=== PATIENT | female | born 1985 | race Two or more races ===

== ENCOUNTER 2025-03-18 18:53 | Emergency (ER) | payer BC ==
[~2025-03-18] VITALS: Ht 162.6 cm; Wt 103.0 kg
== END 2025-03-18 20:02 | disposition home or self-care (01) ==
LOC: ER 18:53
DX: T16.1XXA Foreign body in right ear, initial encounter (principal); X58.XXXA Exposure to other specified factors, initial encounter; Y93.89 Activity, other specified; Y92.89 Other specified places as the place of occurrence of the external cause; Y99.9 Unspecified external cause status